=== PATIENT | female | born 1985 | race Two or more races ===

== ENCOUNTER 2020-09-12 15:53 | Inpatient (IN) | payer MEDICAID ==
[~2020-09-12] VITALS: Ht 160 cm; Wt 120.0 kg
[2020-09-12] MEDS ORDERED: CALCIUM CARBONATE 500 MG TAB.CHEW PO PRN (16:00)
[2020-09-12] MEDS ORDERED: ONDANSETRON 2MG/ML, 2ML IVPush ONE (16:00)
[2020-09-12] MEDS ORDERED: SODIUM CITRATE/CITRIC ACID 30 ML UDC PO ONE (16:00)
[2020-09-12] MEDS ORDERED: LACTATED RINGERS 1,000 ML IVBOLUS ONE (16:00)
[2020-09-12] MEDS ORDERED: METOCLOPRAMIDE 5 MG/ML, 2ML IV ONE (16:00)
[2020-09-12] MEDS ORDERED: OXYTOCIN 30U/ 0.9% NaCL 500ML 500 ML ONE (16:34)
[2020-09-12] MEDS ORDERED: SODIUM CITRATE/CITRIC ACID 15 ML UDC ONE (16:34)
[2020-09-12] MEDS ORDERED: NEWBORN KIT ONE (16:34)
[2020-09-12] MEDS ORDERED: METOCLOPRAMIDE 5 MG/ML, 2ML ONE (16:34)
[2020-09-12 16:51] LABS: AMPHETAMINE SCREEN, URINE Negative (Negative); BARBITURATE SCREEN, URINE Negative (Negative); BENZODIAZEPINE SCREEN, URINE Negative (Negative); COCAINE SCREEN, URINE Negative (Negative); METHADONE SCREEN, URINE Negative (Negative); OPIATE SCREEN, URINE Negative (Negative); PROTEIN/CREATININE RATIO,URINE 364 (0-200); TOTAL PROTEIN,URINE RANDOM 39 mg/dL (0-12)
[2020-09-12 16:52] LABS: BASOPHILS % (AUTO) 0 % (0-1); EOSINOPHILS % (AUTO) 1 % (1-7); LYMPHOCYTES % (AUTO) 21 % (22-44); MEAN CORPUSCULAR HEMOGLOBIN 26.5 pg (27.0-34.8); MEAN CORPUSCULAR HGB CONC 32.5 g/dL (32.4-35.8); MEAN PLATELET VOLUME 9.3 fL (7.4-10.4); MONOCYTES % (AUTO) 7 % (2-9); NEUTROPHILS % (AUTO) 71 % (42-75); PLATELET COUNT 313 x10^3/uL (130-400); RED BLOOD COUNT 4.35 x10^6/uL (3.82-5.3); RED CELL DISTRIBUTION WIDTH 14.6 % (9.6-15.2)
[2020-09-12 16:57] LABS: MD NO
[2020-09-12] MEDS ORDERED: PLEASE ENTER HEIGHT AND WEIGHT MC SCH (17:00)
[2020-09-12] MEDS ORDERED: PLEASE ENTER ALLERGIES MC SCH (17:00)
[2020-09-12 17:38] LABS: CANNABINOID SCREEN, URINE Positive (Negative)
[2020-09-12 19:23] LABS: ALANINE AMINOTRANSFERASE 12 U/L (12-78); ALBUMIN 2.4 g/dL (3.4-5.0); ANION GAP 9 mmol/L (5-15); CALCIUM 8.7 mg/dL (8.5-10.1); CHLORIDE 109 mmol/L (98-107); CREATININE 0.73 mg/dL (0.55-1.02)
[2020-09-12 19:25] LABS: ALKALINE PHOSPHATASE 139 U/L (45-117); BILIRUBIN,TOTAL 0.2 mg/dL (0.2-1.0); TOTAL PROTEIN 6.5 g/dL (6.4-8.2)
[2020-09-12] MEDS ORDERED: OXYTOCIN 10 UNITS/ML, 1ML ONE (19:39)
[2020-09-12] MEDS ORDERED: CEFAZOLIN 1,000 MG ONE ×2 (19:39→19:45)
[2020-09-12] MEDS ORDERED: ONDANSETRON 2MG/ML, 2ML ONE (19:39)
[2020-09-12] MEDS ORDERED: HYDROmorphone 2 MG/ML, 1ML ONE (19:40)
[2020-09-12] MEDS ORDERED: FENTANYL PF 100 MCG/2ML ONE (19:40)
[2020-09-12] MEDS ORDERED: CARBOPROST TROMETHAMINE 250 MCG/ML, 1ML IM PRN (22:00)
[2020-09-12] MEDS ORDERED: SIMETHICONE 80 MG CHEW TAB PO PRN (22:00)
[2020-09-12] MEDS ORDERED: ACETAMINOPHEN 325 MG TABLET PO PRN (22:00)
[2020-09-12] MEDS ORDERED: MISOPROSTOL 200 MCG TABLET PR PRN (22:00)
[2020-09-12] MEDS ORDERED: ONDANSETRON 2MG/ML, 2ML IV PRN (22:00)
[2020-09-12] MEDS: LACTATED RINGERS 1,000 ML IV SCH ×2 (22:00→22:32)
[2020-09-12] MEDS ORDERED: OXYcodone/APAP 5/325MG TABLET PO PRN (22:00)
[2020-09-12] MEDS: OXYTOCIN 30U/ 0.9% NaCL 500ML 500 ML IV SCH (22:31)
[2020-09-12] MEDS ORDERED: OXYcodone 5 MG/5 ML ORAL.SOL UDC ONE (22:41)
[2020-09-12] MEDS ORDERED: OXYCODONE MC SCH (23:00)
[2020-09-12] MEDS ORDERED: OXYcodone 5 MG/5 ML ORAL.SOL UDC PO PRN ×2 (23:00)
[2020-09-12 23:50] VITALS: BP 136/84
[2020-09-13] MEDS: OXYcodone IR 5MG TABLET PO PRN ×6 (02:12→21:42)
[2020-09-13 03:25] VITALS: BP 138/86
[2020-09-13] MEDS: IBUPROFEN 600 MG TABLET PO PRN ×3 (04:49→16:42)
[2020-09-13 05:06] LABS: BASOPHILS % (AUTO) 0 % (0-1); EOSINOPHILS % (AUTO) 0 % (1-7); LYMPHOCYTES % (AUTO) 14 % (22-44); MEAN CORPUSCULAR HEMOGLOBIN 26.4 pg (27.0-34.8); MEAN CORPUSCULAR HGB CONC 32.5 g/dL (32.4-35.8); MEAN PLATELET VOLUME 9.3 fL (7.4-10.4); MONOCYTES % (AUTO) 6 % (2-9); NEUTROPHILS % (AUTO) 80 % (42-75); PLATELET COUNT 296 x10^3/uL (130-400); RED BLOOD COUNT 4.38 x10^6/uL (3.82-5.3); RED CELL DISTRIBUTION WIDTH 14.5 % (9.6-15.2)
[2020-09-13 05:14] LABS: ALANINE AMINOTRANSFERASE 18 U/L (12-78); ALBUMIN 2.2 g/dL (3.4-5.0); ANION GAP 3 mmol/L (5-15); CALCIUM 8.4 mg/dL (8.5-10.1); CHLORIDE 110 mmol/L (98-107); CREATININE 0.74 mg/dL (0.55-1.02)
[2020-09-13 05:16] LABS: ALKALINE PHOSPHATASE 127 U/L (45-117); BILIRUBIN,TOTAL 0.4 mg/dL (0.2-1.0); TOTAL PROTEIN 5.8 g/dL (6.4-8.2)
[2020-09-13 05:27] LABS: MD NO
[2020-09-13] MEDS: LACTATED RINGERS 1,000 ML IV SCH ×2 (06:00→08:00)
[2020-09-13] MEDS: OXYTOCIN 30U/ 0.9% NaCL 500ML 500 ML IV SCH (08:00)
[2020-09-13 08:30] VITALS: BP 147/86
[2020-09-13] MEDS ORDERED: MORPHINE SULFATE 4 MG/ML, 1ML ONE (09:51)
[2020-09-13] MEDS: DOCUSATE 100 MG CAPSULE PO PRN ×2 (09:56→21:41)
[2020-09-13] MEDS: PRENATAL VIT/IRON/FA 1 EACH TABLET PO SCH (09:56)
[2020-09-13] MEDS ORDERED: MORPHINE SULFATE 4 MG/ML, 1ML IVPush PRN (10:00)
[2020-09-13] MEDS ORDERED: MEPERIDINE/PF 50 MG/ML ONE ×2 (11:04→15:14)
[2020-09-13] MEDS: MEPERIDINE/PF 25MG/0.5ML IM PRN ×2 (11:09→15:18)
[2020-09-13 12:30] VITALS: BP 141/88
[2020-09-13] MEDS ORDERED: DIPH,PERTUSS(ACELL),TET VAC/PF NC IM-VACC ONE (14:30)
[2020-09-13] MEDS ORDERED: FLU VACC QS2020-21(6MOS UP)/PF 60MCG/0.5 ML SYR IM-VACC ONE (15:00)
[2020-09-13 16:50] VITALS: BP 137/94
[2020-09-13 20:00] VITALS: BP 145/92
[2020-09-14] MEDS: IBUPROFEN 600 MG TABLET PO PRN ×4 (00:46→21:06)
[2020-09-14] MEDS: SERTRALINE 50MG TABLET PO SCH ×2 (00:47→21:07)
[2020-09-14] MEDS: OXYcodone IR 5MG TABLET PO PRN ×5 (02:32→21:06)
[2020-09-14 05:26] LABS: BASOPHILS % (AUTO) 0 % (0-1); EOSINOPHILS % (AUTO) 1 % (1-7); LYMPHOCYTES % (AUTO) 19 % (22-44); MEAN CORPUSCULAR HEMOGLOBIN 27.4 pg (27.0-34.8); MEAN CORPUSCULAR HGB CONC 33.1 g/dL (32.4-35.8); MEAN PLATELET VOLUME 9.1 fL (7.4-10.4); MONOCYTES % (AUTO) 8 % (2-9); NEUTROPHILS % (AUTO) 72 % (42-75); PLATELET COUNT 291 x10^3/uL (130-400); RED BLOOD COUNT 3.97 x10^6/uL (3.82-5.3); RED CELL DISTRIBUTION WIDTH 14.7 % (9.6-15.2)
[2020-09-14 05:30] LABS: MD NO
[2020-09-14 05:35] LABS: ALBUMIN 2.1 g/dL (3.4-5.0); ANION GAP 8 mmol/L (5-15); CALCIUM 8.4 mg/dL (8.5-10.1); CHLORIDE 108 mmol/L (98-107)
[2020-09-14 05:39] LABS: ALANINE AMINOTRANSFERASE 23 U/L (12-78); ALKALINE PHOSPHATASE 175 U/L (45-117); BILIRUBIN,TOTAL 0.5 mg/dL (0.2-1.0); CREATININE 0.69 mg/dL (0.55-1.02)
[2020-09-14] MEDS: PRENATAL VIT/IRON/FA 1 EACH TABLET PO SCH (08:09)
[2020-09-14] MEDS: DOCUSATE 100 MG CAPSULE PO PRN ×2 (08:09→21:07)
[2020-09-14 08:10] VITALS: BP 129/87
[2020-09-14] MEDS ORDERED: SERTRALINE 50MG TABLET PO SCH (09:00)
[2020-09-14 19:45] VITALS: BP 142/87
[2020-09-15 00:20] VITALS: BP 131/85
[2020-09-15] MEDS: OXYcodone IR 5MG TABLET PO PRN ×6 (01:04→21:43)
[2020-09-15] MEDS: IBUPROFEN 600 MG TABLET PO PRN ×3 (05:04→19:48)
[2020-09-15 06:33] LABS: BASOPHILS % (AUTO) 0 % (0-1); EOSINOPHILS % (AUTO) 2 % (1-7); LYMPHOCYTES % (AUTO) 25 % (22-44); MEAN CORPUSCULAR HEMOGLOBIN 26.5 pg (27.0-34.8); MEAN CORPUSCULAR HGB CONC 32.2 g/dL (32.4-35.8); MEAN PLATELET VOLUME 8.5 fL (7.4-10.4); MONOCYTES % (AUTO) 9 % (2-9); NEUTROPHILS % (AUTO) 64 % (42-75); PLATELET COUNT 348 x10^3/uL (130-400); RED BLOOD COUNT 4.31 x10^6/uL (3.82-5.3); RED CELL DISTRIBUTION WIDTH 14.7 % (9.6-15.2)
[2020-09-15 06:44] LABS: ALANINE AMINOTRANSFERASE 56 U/L (12-78); ALBUMIN 2.4 g/dL (3.4-5.0); ANION GAP 3 mmol/L (5-15); CALCIUM 8.5 mg/dL (8.5-10.1); CHLORIDE 109 mmol/L (98-107); CREATININE 0.75 mg/dL (0.55-1.02)
[2020-09-15 06:46] LABS: ALKALINE PHOSPHATASE 314 U/L (45-117); BILIRUBIN,TOTAL 0.4 mg/dL (0.2-1.0); TOTAL PROTEIN 6.5 g/dL (6.4-8.2)
[2020-09-15 07:01] LABS: MD NO
[2020-09-15 08:02] VITALS: BP 153/98
[2020-09-15 08:39] VITALS: BP 159/90
[2020-09-15] MEDS: niFEDipine ER 30 MG TABLET.ER PO SCH (08:41)
[2020-09-15] MEDS: DOCUSATE 100 MG CAPSULE PO PRN ×2 (08:41→19:48)
[2020-09-15] MEDS: PRENATAL VIT/IRON/FA 1 EACH TABLET PO SCH (08:41)
[2020-09-15 11:22] VITALS: BP 145/90
[2020-09-15 16:02] VITALS: BP 126/79
[2020-09-15 17:27] LABS: BASOPHILS % (AUTO) 1 % (0-1); EOSINOPHILS % (AUTO) 3 % (1-7); LYMPHOCYTES % (AUTO) 25 % (22-44); MEAN CORPUSCULAR HEMOGLOBIN 26.5 pg (27.0-34.8); MEAN CORPUSCULAR HGB CONC 32.3 g/dL (32.4-35.8); MEAN PLATELET VOLUME 8.7 fL (7.4-10.4); MONOCYTES % (AUTO) 7 % (2-9); NEUTROPHILS % (AUTO) 66 % (42-75); PLATELET COUNT 372 x10^3/uL (130-400); RED BLOOD COUNT 4.53 x10^6/uL (3.82-5.3); RED CELL DISTRIBUTION WIDTH 14.7 % (9.6-15.2)
[2020-09-15 17:31] LABS: ALANINE AMINOTRANSFERASE 56 U/L (12-78); ALBUMIN 2.5 g/dL (3.4-5.0); ANION GAP 8 mmol/L (5-15); CALCIUM 8.7 mg/dL (8.5-10.1); CHLORIDE 108 mmol/L (98-107); CREATININE 0.81 mg/dL (0.55-1.02)
[2020-09-15 17:34] LABS: ALKALINE PHOSPHATASE 269 U/L (45-117); BILIRUBIN,TOTAL 0.3 mg/dL (0.2-1.0); TOTAL PROTEIN 6.7 g/dL (6.4-8.2)
[2020-09-15 17:36] LABS: MD NO
[2020-09-15 19:40] VITALS: BP 134/88
[2020-09-15] MEDS: SERTRALINE 50MG TABLET PO SCH (21:43)
[2020-09-16] MEDS: OXYcodone IR 5MG TABLET PO PRN ×5 (02:40→19:41)
[2020-09-16] MEDS: IBUPROFEN 600 MG TABLET PO PRN ×3 (02:40→17:10)
[2020-09-16 04:00] VITALS: BP 124/83
[2020-09-16 06:51] LABS: BASOPHILS % (AUTO) 0 % (0-1); EOSINOPHILS % (AUTO) 3 % (1-7); LYMPHOCYTES % (AUTO) 26 % (22-44); MEAN CORPUSCULAR HEMOGLOBIN 27.2 pg (27.0-34.8); MEAN PLATELET VOLUME 8.5 fL (7.4-10.4); MONOCYTES % (AUTO) 8 % (2-9); NEUTROPHILS % (AUTO) 62 % (42-75); PLATELET COUNT 347 x10^3/uL (130-400); RED BLOOD COUNT 4.05 x10^6/uL (3.82-5.3); RED CELL DISTRIBUTION WIDTH 14.4 % (9.6-15.2)
[2020-09-16 06:54] LABS: MD NO
[2020-09-16 07:05] LABS: ALANINE AMINOTRANSFERASE 56 U/L (12-78); ALBUMIN 2.2 g/dL (3.4-5.0); ANION GAP 6 mmol/L (5-15); CALCIUM 8.2 mg/dL (8.5-10.1); CHLORIDE 109 mmol/L (98-107)
[2020-09-16 07:08] LABS: ALKALINE PHOSPHATASE 226 U/L (45-117); BILIRUBIN,TOTAL 0.4 mg/dL (0.2-1.0); CREATININE 0.64 mg/dL (0.55-1.02)
[2020-09-16 08:00] VITALS: BP 164/98
[2020-09-16] MEDS: DOCUSATE 100 MG CAPSULE PO PRN ×2 (08:09→19:41)
[2020-09-16] MEDS: niFEDipine ER 30 MG TABLET.ER PO SCH (08:09)
[2020-09-16] MEDS: PRENATAL VIT/IRON/FA 1 EACH TABLET PO SCH (08:09)
[2020-09-16 09:00] VITALS: BP 136/85
[2020-09-16 11:23] VITALS: BP 145/85
[2020-09-16 15:38] VITALS: BP 130/84
[2020-09-16 19:43] VITALS: BP 129/76
[2020-09-16] MEDS: SERTRALINE 50MG TABLET PO SCH (20:54)
[2020-09-16] MEDS ORDERED: NEOSPORIN OINT. PKT 1 PACKET TP PRN (23:30)
[2020-09-17] MEDS: OXYcodone IR 5MG TABLET PO PRN ×3 (00:26→09:09)
[2020-09-17] MEDS: IBUPROFEN 600 MG TABLET PO PRN ×2 (00:26→07:41)
[2020-09-17 00:30] VITALS: BP 132/84
[2020-09-17 04:20] VITALS: BP 145/90
[2020-09-17 07:16] LABS: BASOPHILS % (AUTO) 0 % (0-1); EOSINOPHILS % (AUTO) 3 % (1-7); LYMPHOCYTES % (AUTO) 28 % (22-44); MEAN CORPUSCULAR HEMOGLOBIN 27.2 pg (27.0-34.8); MEAN CORPUSCULAR HGB CONC 33.2 g/dL (32.4-35.8); MEAN PLATELET VOLUME 8.3 fL (7.4-10.4); MONOCYTES % (AUTO) 9 % (2-9); NEUTROPHILS % (AUTO) 60 % (42-75); PLATELET COUNT 367 x10^3/uL (130-400); RED CELL DISTRIBUTION WIDTH 14.7 % (9.6-15.2)
[2020-09-17 07:17] LABS: MD NO
[2020-09-17 07:20] LABS: ALANINE AMINOTRANSFERASE 47 U/L (12-78); ALBUMIN 2.2 g/dL (3.4-5.0); ANION GAP 6 mmol/L (5-15); CALCIUM 8.2 mg/dL (8.5-10.1); CHLORIDE 109 mmol/L (98-107); CREATININE 0.63 mg/dL (0.55-1.02)
[2020-09-17 07:22] LABS: ALKALINE PHOSPHATASE 182 U/L (45-117); BILIRUBIN,TOTAL 0.5 mg/dL (0.2-1.0); TOTAL PROTEIN 5.9 g/dL (6.4-8.2)
[2020-09-17 07:30] VITALS: BP 137/97
[2020-09-17] MEDS: PRENATAL VIT/IRON/FA 1 EACH TABLET PO SCH (07:41)
[2020-09-17] MEDS: DOCUSATE 100 MG CAPSULE PO PRN (07:41)
[2020-09-17] MEDS ORDERED: niFEDipine ER 60 MG TABLET.ER PO SCH (09:00)
[2020-09-17] MEDS ORDERED: NIFE60TA2 PO (09:41)
[2020-09-17] MEDS ORDERED: OXYC-302 PO (09:41)
[2020-09-17] MEDS ORDERED: DOCU-131 PO (09:41)
[2020-09-17] MEDS ORDERED: IBUP-1222 PO (09:41)
== END 2020-09-17 13:30 | disposition home or self-care (01) | DRG 540 ==
LOC: LDIP 16:01 → 2NW 23:34
PROVIDERS: ADMIT Obstetrics & Gynecology Maternal & Fetal Medicine; ATTEND Obstetrics & Gynecology Maternal & Fetal Medicine
PROC: 10D00Z1 Extraction of Products of Conception, Low, Open Approach (ICD-10-PCS; principal; 2020-09-12)
PROC: 0UB70ZZ Excision of Bilateral Fallopian Tubes, Open Approach (ICD-10-PCS; 2020-09-12)
DX: O34.211 Maternal care for low transverse scar from previous cesarean delivery (principal); O99.324 Drug use complicating childbirth; O14.94 Unspecified pre-eclampsia, complicating childbirth; Z37.0 Single live birth; Z3A.38 38 weeks gestation of pregnancy; F12.90 Cannabis use, unspecified, uncomplicated; Z20.828 Contact with and (suspected) exposure to other viral communicable diseases
CPT/HCPCS: 36415; 80053; 80307; 82570; 83615; 84156; 84550; 85025; 86592; 86850; 86900; 87635; 88302; 90686; 90715; G0378; J0690; J1170; J2175; J2405; J3010; J2590; J2765; J7120